=== PATIENT | male | born 1940 | race Caucasian/White ===

== ENCOUNTER 2018-05-02 16:06 | Inpatient (IN) | payer OTHER, MEDICARE ==
[2018-05-02 16:28] LABS: PLATELET COUNT 221 10^3/uL (150-400)
[2018-05-02] MEDS ORDERED: D5W LR 1,000 ML IV ONE (16:38)
[2018-05-02 16:44] LABS: INR 1.11 (0.83-1.16); PROTIME(PATIENT) 14.5 SEC (12.0-15.0)
--- NOTE | 2018-05-02 17:24 | EDPHY ---
H & P Time Seen by Provider: 05/02/18 16:10 HPI/ROS: HPI Altered mental status, suicide attempt, hypoglycemia. 77-year-old male by ambulance from his residence. This patient has a history of psychiatric illness. He has a history of multiple prior suicide attempts. He is an insulin-dependent diabetic. He has home health care coming to his house every day from 1:00 p.m. Until 7:00 p.m.. When they arrived today they were unable to into the residence. The doors were locked in the was no response from the patient. They then called police and police broke into the apartment. The patient was found down on the ground altered and confused. The initial blood sugar per EMS was too low to read. An IV was established by EMS. The patient was subsequently given 2 amps for total of 500 cc of D10 at his residence and on the way to the hospital. The patient now admits to me that he was trying to kill himself by insulin overdose. He also states that he thinks he took other medications in this suicide attempt but is unable to tell me what they are. He was admitted to our hospital and then to a psychiatric hoff back in February of 2018. This was after he overdosed on insulin and cut his wrist and his neck. 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 Since this time he has had difficulty communicating. Further history is difficult to obtain from this patient. ROS: Constitutional: No fever, no chills. No weakness. Eyes: No discharge. No changes in vision. ENT: No sore throat. No nasal congestion or rhinorrhea. Respiratory: No cough. No shortness of breath. Cardiac: No chest pain, no palpitations. Gastrointestinal: No abdominal pain, no vomiting, no diarrhea. Genitourinary: No hematuria. No dysuria or increased frequency with urination. Musculoskeletal: No back pain. No neck pain. No myalgias or arthralgias. Skin: No rashes. Neurological: No headache. No focal weakness or altered sensation. The patient answers no to all review of systems. Past medical history: As above. Social history: He lives by himself in an apartment. He does have home health care coming out daily as noted above. He has a brother named Getachew Arcos and a sister named IRINA. His brother's phone number is [phone]. His sister's phone number is [phone]. Smoking and alcohol use unknown. Physical Exam: General Appearance: Alert, eyes are open, he intermittently mumbles. He admits to trying to kill himself by insulin overdose This patient appears general well-hydrated and well-nourished. Head: Normocephalic atraumatic. Eyes: Pupils equal and round, cloudy likely from cataracts, minimal reactivity bilaterally at 3 mm, no pallor or injection. No lid edema, erythema or injection. No photophobia. No nystagmus. ENT, Mouth: Mucous membranes are dry. The pharyngeal tissues are unremarkable. No edema or swelling. No asymmetry suggestive of abscess. No erythema or exudates. Respiratory: There are no retractions, lungs are clear to auscultation anteriorly with good air movement bilaterally. Cardiovascular: Regular rate and rhythm. No murmur. He has a midline sternotomy scar. Gastrointestinal: Abdomen is soft and nontender, no masses, bowel sounds normal. No focal tenderness at McBurney's point. No Jimenez sign. Neurological: Motor sensory function is grossly intact. Cranial nerves are normal. Skin: Warm and dry, no rashes. Musculoskeletal: Neck is supple and nontender. No pain on flexion of his neck. Extremities are symmetrical. All joints range without pain or impingement. Psychiatric: No agitation. No depression. Database: EKG: EKG time is 4:21 p.m.; EKG shows a narrow complex normal sinus rhythm with a ventricular rate of 66. The QT interval is prolonged. The OR, QRS intervals are within normal limits. There are no ST-T wave changes indicative of ischemic or injury pattern. No evidence of right heart strain. Interpreted by me. Imaging: CT brain without contrast: No acute pathology. Please see Dr. Lee Siu note for further details. I discussed this study with him. Procedures: Emergency department course: Vital signs reviewed. Blood pressure is 118/70. potline monitor shows a narrow complex sinus rhythm, regular rate of 56. Room air pulse oximetry 94%. IV was established by EMS. The patient had been given 500 cc total of D10. I will start him on a D5 LR drip at 125 cc/hour. EKG obtained. The patient was placed on a cardiac sonographer. I have discussed his situation with [facility]. They are aware of his history. He will be put on a mental health hold. Plan will be to treat his hypoglycemia and to have him medically cleared by the hospitalist service for behavioral health evaluation. KANG will begin looking for placement at the [facility] psychiatric unit. 6:00 p.m., the patient has remained stable throughout his emergency department course. KANG is currently writing an M1 hold. I spoke with the on-call hospitalist Dr. Slade. Case discussed in detail with him. He accepts this patient for admission to the ICU. 6:10 p.m., M1 hold placed, repeat blood sugar is 30. Patient given 1 amp of D50. He will be started on D10 LR with potassium at 200 cc/hour while under my care in the emergency department only. Blood sugar will be checked every 0.5 hr while in the emergency department. Repeat blood sugars have been 97 in 106. The patient was transferred in stable condition to the ICU under the care of Dr. Slade. Differential Diagnosis: The differential diagnosis on this patient includes but is not limited to hypoglycemia secondary to insulin overdose, likely chronic enoxaparin injury, suicidal ideation and attempt. This represents a partial list of diagnoses considered. These considerations are based on history, physical exam, past history, reassessment and diagnostic testing. Smoking Status: Unknown if ever smoked Constitutional: Initial Vital Signs Temperature (C) 36.8 C 05/02/18 18:18 Heart Rate 53 L 05/02/18 18:18 Respiratory Rate 18 05/02/18 18:18 Blood Pressure 118/70 05/02/18 18:18 O2 Sat (%) 97 05/02/18 18:18 Allergies/Adverse Reactions: Unable to Assess Allergy (Unverified 05/02/18 16:14) Home Medications: Medication Instructions Recorded Atorvastatin Calcium [Lipitor 40 40 mg PO DAILY 05/02/18 mg (*)] Insulin Glargine,Hum.rec.anlog 100 unit SQ 05/02/18 [Lantus Solostar] Insulin Lispro [HumaLOG LISPRO] unit SC 05/02/18 Metoprolol Tartrate [Lopressor 25 12.5 mg PO BID 05/02/18 mg (*)] Metreleptin [Myalept] 5 mg SQ 05/02/18 Mirtazapine [Remeron] 15 mg PO HS 05/02/18 Sertraline HCl [Zoloft 100mg (*)] 100 mg PO DAILY 05/02/18 Medical Decision Making - Diagnostics Imaging Results: Imaging Impressions Head CT 05/02/18 16:25 Impression: White matter disease, likely related to microvascular ischemic change. If the patient does not improve, or if there is concern for intracranial infection, then consider MRI without and with contrast. Results called to Dr. Harden at 16:42 PM. General information for patients regarding this examination can be found at [email or web address]. If you have questions or comments about this report, please contact me at [phone] (hospital) or [phone] (cell). Critical Care Time: I spent a total of 52 minutes of critical care time in obtaining history, performing a physical exam, bedside monitoring of interventions, collecting and interpreting tests and discussion with consultants but not including time spent performing procedures. - Data Points Laboratory Results: Laboratory Results 05/02/18 16:15 05/02/18 16:15 05/02/18 05/02/18 05/02/18 16:20 16:15 16:15 WBC RBC Hgb POC Hgb 13.9 gm/dL gm/dL (13.7-17.5) Hct POC Hct 41 % % (40-51) MCV MCH MCHC RDW Plt Count MPV Neut % (Auto) Lymph % (Auto) [place] % (Auto) Eos % (Auto) Baso % (Auto) Nucleat RBC Rel Count Absolute Neuts (auto) Absolute Lymphs (auto) Absolute Monos (auto) Absolute Eos (auto) Absolute Basos (auto) Absolute Nucleated RBC Immature Gran % Immature Gran # RBC/WBC/PLT Morphology Platelet Estimate PT 14.5 SEC SEC (12.0-15.0) INR 1.11 (0.83-1.16) APTT 25.8 SEC SEC (23.0-38.0) POC Sodium 141 mEq/L mEq/L (135-145) Sodium POC Potassium 3.2 mEq/L L mEq/L (3.3-5.0) Potassium POC Chloride 102 mEq/L mEq/L (97-110) Chloride Carbon Dioxide Anion Gap POC BUN 24 mg/dL H mg/dL (7-23) BUN Creatinine POC Creatinine 0.8 mg/dL mg/dL (0.7-1.3) Estimated GFR Glucose POC Glucose 174 mg/dL H mg/dL (70-100) Calcium Salicylates < 1.0 mg/dL L mg/dL (2.0-20.0) Acetaminophen < 10 mcg/mL L mcg/mL (10-30) Ethyl Alcohol < 10 mg/dL mg/dL (0-10) 05/02/18 05/02/18 05/02/18 16:15 16:15 16:15 WBC 12.05 10^3/uL H 10^3/uL (3.80-9.50) RBC 4.43 10^6/uL 10^6/uL (4.40-6.38) Hgb 11.8 g/dL L g/dL (13.7-17.5) POC Hgb Hct 38.3 % L % (40.0-51.0) POC Hct MCV 86.5 fL fL (81.5-99.8) MCH 26.6 pg L pg (27.9-34.1) MCHC 30.8 g/dL L g/dL (32.4-36.7) RDW 16.0 % H % (11.5-15.2) Plt Count 221 10^3/uL 10^3/uL (150-400) MPV 12.1 fL H fL (8.7-11.7) Neut % (Auto) 94.6 % H % (39.3-74.2) Lymph % (Auto) 2.7 % L % (15.0-45.0) [place] % (Auto) 2.4 % L % (4.5-13.0) Eos % (Auto) 0.0 % L % (0.6-7.6) Baso % (Auto) 0.1 % L % (0.3-1.7) Nucleat RBC Rel Count 0.0 % % (0.0-0.2) Absolute Neuts (auto) 11.40 10^3/uL H 10^3/uL (1.70-6.50) Absolute Lymphs (auto) 0.33 10^3/uL L 10^3/uL (1.00-3.00) Absolute Monos (auto) 0.29 10^3/uL L 10^3/uL (0.30-0.80) Absolute Eos (auto) 0.00 10^3/uL L 10^3/uL (0.03-0.40) Absolute Basos (auto) 0.01 10^3/uL L 10^3/uL (0.02-0.10) Absolute Nucleated RBC 0.00 10^3/uL 10^3/uL (0-0.01) Immature Gran % 0.2 % % (0.0-1.1) Immature Gran # 0.02 10^3/uL 10^3/uL (0.00-0.10) RBC/WBC/PLT Morphology TNP Platelet Estimate TNP PT INR APTT POC Sodium Sodium 136 mEq/L mEq/L (135-145) POC Potassium Potassium 3.3 mEq/L L mEq/L (3.5-5.2) POC Chloride Chloride 104 mEq/L mEq/L (97-110) Carbon Dioxide 19 mEq/l L mEq/l (22-31) Anion Gap 13 mEq/L mEq/L (6-14) POC BUN BUN 25 mg/dL H mg/dL (7-23) Creatinine 0.8 mg/dL mg/dL (0.7-1.3) POC Creatinine Estimated GFR > 60 Glucose 173 mg/dL H mg/dL (70-100) POC Glucose 147 mg/dL H mg/dL (70-100) Calcium 9.2 mg/dL mg/dL (8.5-10.4) Salicylates Acetaminophen Ethyl Alcohol Medications Given: Dextrose/Lactated Ringer's (D5w Lr) 1,000 mls @ 125 mls/hr IV CONT ONE Stop: 05/03/18 00:37 Last Admin: 05/02/18 16:57 Dose: 1,000 mls Discontinued Medications Potassium Chloride (Potassium Cl 10 Meq (Premix)) 100 mls @ 100 mls/hr IV EDNOW ONE Stop: 05/02/18 19:24 Last Admin: 05/02/18 18:26 Dose: 100 mls Point of Care Test Results: Chemistry 05/02/18 05/02/18 16:20 16:15 POC Sodium 141 mEq/L mEq/L (135-145) POC Potassium 3.2 mEq/L L mEq/L (3.3-5.0) POC Chloride 102 mEq/L mEq/L (97-110) POC BUN 24 mg/dL H mg/dL (7-23) POC Creatinine 0.8 mg/dL mg/dL (0.7-1.3) POC Glucose 174 mg/dL H mg/dL 147 mg/dL H mg/dL (70-100) (70-100) ISTAT H&H 05/02/18 16:20 POC Hgb 13.9 gm/dL gm/dL (13.7-17.5) POC Hct 41 % % (40-51) Departure - Departure Disposition: [facility] Inpatient Acute Clinical Impression: Insulin overdose, Hypoglycemia, Suicidal ideation, Hypokalemia Condition: Fair
[2018-05-02] MEDS ORDERED: D50W 25 GM/50 ML SYR IVP ONE ×3 (18:12→21:30)
[2018-05-02] MEDS ORDERED: D10W 1,000 ML IV ONE (18:15)
[2018-05-02] MEDS ORDERED: POTASSIUM Cl (KCl) 10 MEQ/100 ML BAG IV ONE (18:18)
[2018-05-02] MEDS ORDERED: POTASSIUM Cl (KCl) 100 ML IV ONE (18:25)
[2018-05-02] MEDS ORDERED: ONDANSETRON 4 MG/2 ML VIAL IVP PRN (18:55)
[2018-05-02] MEDS ORDERED: ACETAMINOPHEN 325 MG TAB PO PRN (18:55)
[2018-05-02] MEDS ORDERED: ONDANSETRON DISINTEGRATING 4 MG TAB PO PRN (18:55)
[2018-05-02] MEDS ORDERED: DEXTROSE IVP SCH (19:00)
[2018-05-02] MEDS ORDERED: POTASSIUM CL IVP SCH (19:00)
[2018-05-02] MEDS ORDERED: D5W LR IVP SCH (19:00)
--- NOTE | 2018-05-02 20:22 | CPEKG ---
Test Reason : OPEN Blood Pressure : / mmHG Vent. Rate : 066 BPM Atrial Rate : 065 BPM P-R Int : 192 ms QRS Dur : 095 ms QT Int : 489 ms P-R-T Axes : 044 -05 090 degrees QTc Int : 513 ms Sinus rhythm Prolonged QT interval Confirmed by Cristina Harden ([id number]) on 05/02/2018 8:21:52 PM Referred By: Cristina Harden Confirmed By:Cristina Harden
--- NOTE | 2018-05-02 20:58 | ASMTLCPROG ---
Notes Note: Notes: PT is not medically clear and being moved to ICU. Pt's [facility] eval was mostly completed with collateral and will need to be further completed upon med clearence. M1 Hold written by [facility] per Dr. Cristina Lozano and signed by Dr. Lozano.Pt rights in chart. Date Signed: 05/02/2018 06:31 PM Electronically Signed By:Lee Augustin
--- NOTE | 2018-05-02 22:16 | GHP ---
DATE OF ADMISSION: 05/02/2018 CHIEF COMPLAINT: Insulin overdose. HISTORY OF PRESENT ILLNESS: This is a 77-year-old male who recently had a suicide attempt in be r of this year where he cut his wrists. He was then sent to inpatient psychiatry at that time. [facility] home health care has been coming to his house. The doors were locked and there was no respons e, and then police broke into the apartment, and the patient was found down and confused. Blood suga r was too low to read, per EMS. Patient was given D50 and with improvement in mental status. He cur rently is on a D10 drip. Patient does admit to taking insulin as an intentional suicide act. However, it seems like he has prince ffered some anoxic brain injury from his last suicide attempt, and conversation has been difficult. I am not able to really get much more of a history. REVIEW OF SYSTEMS: Limited review of systems is obtained due to patient's non-conversive state. PAST MEDICAL HISTORY: 1. Coronary artery disease, status post CABG in 2018. 2. Depression. 3. Hypertension. 4. Type 2 diabetes, insulin dependent. MEDICATIONS: Reviewed. SOCIAL HISTORY: No smoking. FAMILY HISTORY: Unobtained. Does not appear to have any family history of psychiatric illness. PHYSICAL EXAM: VITAL SIGNS: Afebrile. Blood pressure is 119/78. Heart rate is 53, oxygen saturati on 97% on room air. GENERAL: Patient is well developed, in no apparent distress. HEENT: Nonicteri c sclerae. Extraocular movements intact. Moist mucous membranes. NECK: Supple, with no thyromegal y. LUNGS: Good effort. Clear to auscultation bilaterally. CARDIOVASCULAR: Regular rate and rhyth m. No murmurs or gallops. ABDOMEN: Positive bowel sounds. Soft, nontender, nondistended. No hepa tosplenomegaly. EXTREMITIES: No clubbing, cyanosis, or edema. SKIN: Without rash, dry, intact. N EURO: Really difficult to converse with him. PSYCH: Flat affect. LABS: White count is 12, hemoglobin 11. Chemistries showed blood sugars in the 140s to 170s when he first came in, and then dropped again to 30s. U-tox is negative. CT scan of the head is negative. ASSESSMENT: This is a 77-year-old male presenting with a suicide attempt with an overdose of insulin . PLAN: 1. Insulin overdose: He has been on Lantus in the past. It is very conceivable he took Lantus as w ell as lispro. We will monitor his blood sugars quite closely. He is on a D10 drip now. We will gi ve p.r.n. D50. 2. Suicide attempt: Patient will be on mental health hold. 3. History of coronary artery disease: It seems that his depression might have started after his by pass surgery. . /[id number]/MODL
[2018-05-02] MEDS ORDERED: D50W 25 GM/50 ML SYR IVP PRN (22:50)
[2018-05-03] MEDS ORDERED: D5W NS W/ 20 KCl/L 1,000 ML IV SCH (02:30)
[2018-05-03 05:15] LABS: PLATELET COUNT 162 10^3/uL (150-400)
[2018-05-03] MEDS: ENOXAPARIN 40 MG/0.4 ML SYR SC SCH (08:52)
--- NOTE | 2018-05-03 10:10 | PDMN ---
Medical Necessity Medical necessity: [facility] [place] [facility] General Admission: 77 yo w/ attempted suicide by insulin OD. M1 hold as pt risk of harm to self. Admit to ICU for tx/ management of OD, BEH services.
[2018-05-03] MEDS ORDERED: D50W 25 GM/50 ML SYR IVP PRN (10:41)
[2018-05-03] MEDS ORDERED: MELATONIN 3 MG TAB PO PRN (10:48)
[2018-05-03] MEDS: INSULIN LISPRO 100 UNIT/ML SC SCH ×3 (11:00→18:15)
--- NOTE | 2018-05-03 11:37 | HOSPPROG ---
Hospitalist Progress Note Assessment/Plan: Intentional Insulin Overdose - Has been on Lantus in the past, admits to intentionally taking overdose - S/p D5 and started on D10 gtt on admission - Wean off dextrose infusion this morning, BG in 200's - Placed on M1 Hold - If BG remains WNL without signs of dropping, will medically clear this afternoon Hypoglycemia - 2/2 to above - S/p dextrose gtt, weaned off this morning - BG 200's this AM, will start SSI to cover - Continue to monitor blood glucose T2DM - Has been on Lantus 32 units qd, Lispro 10 units TID - Intentional insulin overdose as above - Will order SSI for now, will restart long acting insulin at half of prescribed dose 16 units, in setting of hypoglycemia and overdose, uptitrate as needed Depression - Overdose and M1 Hold as above - Continue home medications this morning FEN: Diabetic Diet Code: FULL Dispo: If BG remains WNL throughout today will medically clear for discharge per [facility] Subjective: Patient reports no complaints this AM Objective: Vital Signs Temp Pulse Resp BP Pulse Ox 37.1 C 69 16 131/63 H 98 05/03/18 08:00 05/03/18 10:00 05/03/18 10:00 05/03/18 10:00 05/03/18 10:00 Laboratory Results 05/03/18 05:00 05/03/18 05:00 05/02/18 05/03/18 05/04/18 05:59 05:59 05:59 Intake Total 1612 Output Total 675 125 Balance 937 -125 PT 14.5 SEC (12.0-15.0) 05/02/18 16:15 INR 1.11 (0.83-1.16) 05/02/18 16:15 - Physical Exam Constitutional: no apparent distress Eyes: PERRL Ears, Nose, Mouth, Throat: moist mucous membranes Cardiovascular: regular rate and rhythym Respiratory: no respiratory distress Gastrointestinal: No distension Genitourinary: No bassett in urethra Skin: normal color Neurologic: AAOx3 Psychiatric: depressed ICD10 Worksheet Patient Problems: Problems Problem Status Onset Hypoglycemia Acute Hypokalemia Acute Insulin overdose Acute Suicidal ideation Acute
--- NOTE | 2018-05-03 16:25 | ASMTTLCEVL ---
TLC Evaluation - Basic Information Evaluation Start Date and 05/02/2018 06:00 PM Time Hospital Status Answers: M1 Hold 72-hr M1 Hold Start Date 05/02/2018 06:15 PM and Time Patient statement Notes: "This was a suicide attempt" Narrative Notes: PT is a 77 year old caucasion male, never , no children, living in an apt in [place]. PT arrived by ambulance from his residence after pt's caregiver called for a welfare check. Per ED report "PT has hx of major depression recurrent and severe suicide attempts. Pt is an insulin-dependent diabetic. He has home health care coming to his house every day from 1:00 p.m. Until 7:00 p.m. When they arrived today they were unable to into the residence. The doors were locked in the was no response from the patient. They then called police and police broke into the apartment. The patient was found down on the ground altered and confused. The initial blood sugar per EMS was too low to read. An IV was established by EMS. The patient was subsequently given 2 amps for total of 500 cc of D10 at his residence and on the way to the hospital. The patient now admits to me that he was trying to kill himself by insulin overdose. He also states that he thinks he took other medications in this suicide attempt but is unable to tell me what they are. Pt admited to ed physician that was admitted to our hospital and then to a psychiatric hoff back in February of 2018. This was after he overdosed on insulin and cut his wrist and his neck. 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 Since this time he has had difficulty communicating. Further history is difficult to obtain from this patient." Diagnosis History Notes: Per previous discharge summary from unit, pt has major depression severe recurrent Prior suicide attempts Notes: Per previous eval regarding suicide attempt in February 2018 in which pt was hopsitalized : "Per ED report police knocked on his door and had to break in where he was found in the kitchen with blood all over himself. He had a deep laceration to his left wrist and also a laceration to his left neck with several other small abrasions. Pt had reported he took 100 units of IM insulin about an hour before his arrival to the ED. " Prior hospitalizations Notes: [facility] 3N 02/2018 after previous suicide attempt. Treatment Responses Notes: Per [facility] In Pt Psyc Discharge Summary - [facility] INPT Discharge Summary Patient Name: ABHAY CASTRO Unit Number: [id number] Attending/ER Physician: Pantera Hair MD Adm Date/Source: 02/09/18 Discharge Date: 02/17/18 Primary Carrier: MEDICARE PSYCH INPATIENT REASON FOR ADMISSION: From the emergency department provider report dated 02/07/2018, patient reported to his brother he was suicidal. The police knocked on patient's door and found him in the kitchen with blood all over the kitchen floor. The patient had a deep laceration to his left wrist and also laceration to his left neck with several other small abrasions. Patient also reported he took 100 units of IM insulin about 1 hour prior to presenting to the emergency department. Patient was admitted involuntarily on an M1 hold due to being a danger to himself and was hospitalized for safety, crisis stabilization, and medication evaluation. ADMISSION DIAGNOSES: 1. Major depressive disorder, recurrent episode, severe, with anxious distress. 2. Depressive disorder due to another medical condition with depressive features. 3. Uncontrolled diabetes mellitus. HOSPITAL COURSE: The most prominent symptoms and behaviors while the patient was here were reports of moderate depression and moderate anxiety. Treatment modalities utilized were milieu and group therapy. Sertraline 50 mg p.o. daily was started to target anxiety and depression symptoms, and was tolerated with no report of side effects and with fair response. Remeron 7.5 mg p.o. q.h.s. was started and was titrated to 15 mg p.o. at bedtime, was tolerated with no report of side effects and with good response. Atorvastatin calcium 40 mg p.o. q.h.s. with continued was tolerated with no report of side effects and with good response. Lopressor 12.5 mg p.o. b.i.d. was continued with no report of side effects and with good response. Insulin lispro 0 to 10 units SC ACHS. Insulin Glargine was adjusted and at discharge was at 36 units SC h.s. Insulin lispro was adjusted throughout hospitalization, at discharge was at 12 units SC t.i.d. with meal. These medications for the patient's diabetes mellitus were tolerated with no report of side effects and with fair response. Patient's blood sugar was more regulated at time of discharge and improved considerably throughout the patient's stay. Patient requests to remain at these current doses of Insulin Lispro JANEL and PRN and Insulin Glargine after discharge, and states he plans to follow-up at [facility] today to review with PCP. Patient has improved considerably with no signs of psychiatric symptoms and no psychiatric symptoms expressed at time of discharge. Patient reports he has improved since admission, states to be in stable condition, feels safe to discharge, and he contracts for safety. The patient's response to treatment was good. There were no adverse or unexpected results of treatment. Patient was safe throughout his stay, active in treatment, attended and engaged in groups, and was appropriate with staff and other patients. Patient met with the treatment team prior to discharge to assess readiness to discharge and review discharge plan. The treatment team consensus is the patient is in stable condition, has a safe discharge plan, and is ready to discharge today. CONDITION AT DISCHARGE: Patient is in stable condition and is no longer a danger to self or others, and is not gravely disabled due to mental illness. Patient is no longer in need of inpatient level of care, and can be safely and effectively treated within the community. The patients level of risk at time of discharge is low. MSE: The patient is casually dressed and with good hygiene, and looks stated age. Patient is sitting, posture is upright, and position is relaxed. Patient appears awake, alert, and responds appropriately and reasonably during interview. Patient is engaged, relates well to interviewer, and emotional facial expression is appropriate to situation and changes appropriately with topic. Patient is cooperative, makes comfortable eye contact, and movements are voluntary, deliberate, coordinated, and smooth and even with no inappropriate movements. Patient makes laryngeal sounds effortlessly and shares conversation appropriately; pace of conversation is appropriate, and stream of talking is fluent; articulation is clear and understandable; word choice is effortless and appropriate for education level; completes sentences, occasionally pausing to think; rate and volume are appropriate for interview and setting. Patient reports mood as euthymic. Patients affect is stable with full variable range, congruent with mood, and appropriate to speech and circumstances. Patient has linear and logical thinking, with no loose associations, tangential thought, thought blocking, concrete thinking, or any other signs of formal thought disorder. Patient denies suicidal and homicidal ideation, and denies hallucinations and delusions. Patient appears to be a reliable historian with sound judgement and good insight into current condition. Patient has no apparent dysfunction in recent or remote memory noted, and no evidence of gross cognitive dysfunction noted at any point during the interview. DISCHARGE DIAGNOSES: 1. Major depressive disorder, recurrent episode, severe, with anxious distress. 2. Depressive disorder due to another medical condition with depressive features. 3. Uncontrolled diabetes mellitus. CURRENT MEDICATIONS: After reviewing options risks and benefits with the patient, patient agrees to continue: 1. Insulin lispro 0 to 10 units SC ACHS. 2. Insulin lispro 12 units SC t.i.d. with meal. 3. Insulin glargine 36 units SC h.s. 4. Atorvastatin calcium 40 mg p.o. q.h.s. 5. Sertraline 50 mg p.o. daily. 6. Mirtazapine 15 mg p.o. q.h.s. 7. Lopressor 12.5 mg p.o. b.i.d. 8. Melatonin 3 to 6 mg p.o. h.s. p.r.n. Patient requests prescriptions for these medications at time of discharge and prescriptions are written for 30 days. The prescriptions are reviewed with the patient at time of discharge to ensure accuracy and patient understanding. Patient has an appointment today with a primary care provider at [facility] at 1520, and patient plans to review prescriptions with the PCP and PCP to make any adjustments necessary based on the patient's history of diabetes mellitus and current blood sugar control. DISPOSITION: Patient left hospital independently and voluntarily with his brother and plans to attend outpatient PCP appointment at [facility] with his brother today at 1520, and then plans to stay at [facility] Respite transitional housing. FOLLOWUP: clinical trials data coordinator reports the appropriate outpatient follow-up services have been established and outpatient appointments have been scheduled. The patient received written instructions with times and dates of outpatient follow-up appointments. The following follow-up recommendations were provided to the patient at discharge: Continue psychotropic medications as prescribed and attend appointments as scheduled. Report any side effects to a psychiatric outpatient provider, a primary care provider, or other health animal care attendant. Address any questions or problems concerning the psychotropic medications with a psychiatric outpatient provider, a primary care provider, or other health animal care attendant. Contact [facility] or [facility], or go to the nearest emergency room, if you are ever a danger to yourself/others, or unable to care for yourself. As soon as possible, establish a routine medication management treatment with a psychiatric provider, establish routine therapy appointments, and follow-up with a primary care provider. LEGAL COURSE: Patient was hospitalized involuntarily on an M1 hold for inpatient psychiatric hospitalization the patient discharged today independently and voluntarily with his brother. ATTITUDE AT TIME OF DISCHARGE: The patients attitude was positive at time of discharge, and patient reports looking forward to discharging today. The patient reports he feels safe to discharge, is no longer a danger to himself or others, is in stable condition, and contracts for safety. Patient states he will continue medications as prescribed, and establish medication management treatment with an outpatient provider after discharge. Patient reports he understands the information that has been provided to him, and he understands, accepts, and agrees to psychotropic medications. Patient describes internal protective factors as the coping skills he has learned while hospitalized here, and he plans to continue to practice these coping skills after discharge. Patient reports external protective factors as family. FAMILY MEETING: This AUTO LOCATOR met with patient and patient's brother at patient's request to review discharge plan, medications, and readiness to discharge. Patient's brother reports patient has a safe discharge plan and is ready to discharge today. LABORATORY/STUDIES: There were no pending labs or studies at time. ADVANCED DIRECTIVES: There were no advance directives on file and patient was full code during this hospitalization. The following psychotropic medication treatment informed consent and recommendations were provided to the patient at time of discharge. Patient reports he understands, accepts, and agrees to the information that has been provided. PSYCHOTROPIC MEDICATION TREATMENT INFORMED CONSENT and RECOMMENDATIONS: Review nature of condition, diagnosis, and prognosis. Review nature and purpose of psychotropic medication treatment. Review type of psychotropic medications being prescribed. Review risk and benefits of psychotropic medication treatment. Review probable length of time will need to take medications. Review risk and benefits of not undergoing psychotropic medication treatment. Review alternative treatments to psychotropic medications. Review psychotropic medications contraindications, side effects, and importance of reporting any side effects to a psychiatric provider, primary care provider, or other health animal care attendant. Review importance of asking a psychiatric provider or primary care provider any questions or problems concerning the psychotropic medications. Review safety plan and the importance to contact [facility] or [facility], or go to the nearest emergency room, if ever a danger to yourself/others, or unable to care for yourself. Recommend upon discharge to establish routine medication management treatment with a psychiatric provider, establish routine therapy appointments, and follow-up with a primary care provider. Verify patient understands, accepts, and agrees to the information that has been provided. SUICIDE ASSESSMENT FIVE-STEP EVALUATION AND TRIAGE (1) RISK FACTORS: (a) Suicidal behavior: no history of prior suicide attempts (b) Current/past psychiatric disorders: Major Depressive Disorder (c) [place] symptoms: none expressed or exhibited at time of discharge (d) Family history: none (e) Precipitants/Stressors/Interpersonal: none (f) Change in treatment: discharge from psychiatric hospital (g) Access to firearms: none (2) PROTECTIVE FACTORS: (a) Internal: coping skills learned while hospitalized (b) External: family, friends, and future (3) SUICIDAL INQUIRY: (a) Ideation: none (b) Plan: none (c) Behaviors: none; patient was safe throughout stay with no suicidal or parasuicidal behaviors (d) Intent: none (4) RISK LEVEL: Low: modifiable risk factors, strong protective factors; no suicidal or self-injurious ideation. Intervention: treatment plan to reduce symptoms including medications and therapy, provided emergency/crisis numbers, established follow-up plan, and supportive family. Signed by Robbi Bonner NP History of violence Notes: None repoted Medications (name, dosage, route, freq uency) Notes: Pt is unable to report med list - Per previous in-pt stay: CURRENT MEDICATIONS: After reviewing options risks and benefits with the patient, patient agrees to continue: 1. Insulin lispro 0 to 10 units SC ACHS. 2. Insulin lispro 12 units SC t.i.d. with meal. 3. Insulin glargine 36 units SC h.s. 4. Atorvastatin calcium 40 mg p.o. q.h.s. 5. Sertraline 50 mg p.o. daily. 6. Mirtazapine 15 mg p.o. q.h.s. 7. Lopressor 12.5 mg p.o. b.i.d. 8. Melatonin 3 to 6 mg p.o. h.s. p.r.n. 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 Pt was exhibiting hypotension upon arrival to the ED. Pt has a reported hx of hyperlipidemia, hypertension, CAD, CABG, hx of heart murmur, insomnia, and long standing hx of depression. EKG: EKG time is 4:21 p.m.; EKG shows a narrow complex normal sinus rhythm with a ventricular rate of 66. The QT interval is prolonged. The p.r., QT intervals are within normal limits. There are no ST-T wave changes indicative of ischemic or injury pattern. No evidence of right heart strain. Interpreted by me. Imaging: CT brain without contrast: No acute pathology. Substance use history (frequency, intensity, his tory, duration) Notes: Per previous eval the Pt denies any substance abuse. Family composition Notes: Per previous eval the Pt single, never . He has one brother who lives locally and a sister. He has a brother named Getachew Castro and a sister named JANETH. His brother's phone number is [phone]. His sister's phone number is [phone]. Need for family Answers: Yes participation in patient's care Family psychiatric/substance abuse history Notes: No family hx of substance abuse or mental health problems were identified Developmental history Notes: Per previous eval the Pt denied any hx of ADD or ADHD. He likely had a concussion during his youth playing football. Pt described his childhood as good born and raised in [place], [place] Abuse concerns Answers: None Marital status/children Notes: Pt single, never . Pt has no children. Living situation Notes: Pt lives alone in [place]. He moved to [place] about 4 years ago. Sexual history/orientation Notes: Pt identifies himself as heterosexual. He is not in a relationship Peer support/family strengths Notes: Pt feels he has many acquaintances in the area but views his brother and sister in law as his main support. 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 He has not been working for about 4 years. Pt previously served in the Notes: Pt served in [place] Legal Notes: Pt reported many years ago he was arrested for drug possession Bahai/Spiritual Notes: Pt denied any hindu or spiritual beliefs that would interfere with his treatment Leisure Notes: Pt stated he enjoys exercising, walking, hiking and swimming Collateral Notes: Collateral was obtained from pt.'s medical record and EMS. Patient's strengths Answers: Honest (Please select at least TWO strengths): Insightful Responsible/Dependable Supportive Family Willingness TLC Evaluation - Mental Status Exam Appearance: Answers: Appropriate Clean Well Groomed Eye Contact: Answers: Intermittent Mood: Answers: Depressed Labile Sad Affect: Answers: Appropriate Apprehensive Calm Congruent w/ Mood Flat Sad Behavior: Answers: Appropriate Cooperative Impulsive Passive Speech: Answers: Relevant Logical Clear Coherent Soft Thought Process: Answers: Organized Oriented Alert Intact Insight: Answers: Fair Judgement: Answers: Fair Manic Signs/Symptoms Answers: Impulsivity Mood Swings Depression Answers: Difficulty Concentrating Signs/Symptoms: Diminished Interest Diminished Pleasure Flat Affect Hopelessness Psychomotor Retardation Sad Mood Withdrawn Worthlessness Hallucinations: Answers: None Pt reported to have Answers: Yes suicidal/self-injuring ideation/behavior? Pt reported to be making Answers: No suicidal/self-injuring threats? Pt reported to have Answers: No aggression/assault ideation/behavior? Pt exhibits inability to Answers: No care for self/grave disability? Ideation/behavior is Answers: Yes chronic? Patient has a specific Answers: Yes plan? Pt has access to means to Answers: Yes execute the plan? Ideation has Answers: No delusional/hallucinatory content? History of Answers: Yes suicidal/self-injuring ideation, behavior, or threats? History of Answers: No aggressive/assaultive ideation, behavior, or threats? History of serious Answers: No physical harm to self/others while in treatment setting? [facility] Evaluation - Suicide/Homicide Risk Suicide Risk Factors: Answers: < 20 or > 40 Years of Age Flat Affect Hopelessness Impulsivity Inadequate Social Support Lack of Social Support Lack/Loss of Employment Major Depression Organized Lethal Plan Prior Suicide Attempt(s) Single Homicide/violence risk Answers: None factors: Current Suicidal Answers: Yes Ideation? Current Suicidal Ideation Answers: Yes in the Past 48 Hours? Current Suicidal Ideation Answers: Yes in the Past Month? Current Suicidal Answers: No Ideation, Worst Ever? Suicide Internal Answers: Absence of Psychosis Protective Factors: Suicide External Answers: Positive Therapeutic Protective Factors: Relationships Ranking of patient's Answers: Imminent suicidal risk: Ranking of patient's Answers: Low homicidal risk: TLC Evaluation - Wrap-up AXIS I Diagnosis (include DSM-V and ICD-10 codes), must also be entered in [employer], which is the source of truth. Notes: Major Depressive Disorder, recurrent, severe 296.33 (F33.2) PT did not want to complete BDI or BSS.; He initially denied SI to centrifugal separator but when asked to do the BDI and BSS he then said "it was a suicide attempt" Per ICU staff pt had also told Dr. Mejia it was a suicide attempt." Evaluation End Date and 05/03/2018 04:25 PM Time (HH:MM): Date Signed: 05/03/2018 04:25 PM Electronically Signed By:Lee Augustin
--- NOTE | 2018-05-03 17:31 | ASMTLCPROG ---
Notes Note: Notes: PT reports [facility]'t [facility] the name of provider. Date Signed: 05/03/2018 05:31 PM Electronically Signed By:Lee Augustin
[2018-05-03] MEDS ORDERED: INSULIN GLARGINE 100 UNITS/ML UNIT SC SCH (21:00)
[2018-05-03] MEDS ORDERED: MIRTAZAPINE 15 MG TAB PO SCH (21:00)
[2018-05-03] MEDS: METOPROLOL TARTRATE 25 MG TAB PO SCH (21:23)
[2018-05-04] MEDS: INSULIN LISPRO 100 UNIT/ML SC SCH ×2 (07:33→11:31)
[2018-05-04] MEDS: METOPROLOL TARTRATE 25 MG TAB PO SCH (08:20)
[2018-05-04] MEDS: ENOXAPARIN 40 MG/0.4 ML SYR SC SCH (08:21)
[2018-05-04] MEDS ORDERED: ATORVASTATIN CALCIUM 40 MG TAB PO SCH (09:00)
[2018-05-04] MEDS ORDERED: SERTRALINE HCL 100 MG TAB PO SCH (09:00)
[2018-05-04 12:02] VITALS: BP 146/76
--- NOTE | 2018-05-04 14:20 | PDDCSUM ---
Discharge Summary Discharge Summary: Date of Admission: 05/02/2018 Date of Discharge: 05/04/2018 Consults: KANG Procedures: N/A Followup: Psychiatry, PCP Hospital Course Problem List: Intentional Insulin Overdose - Has been on Lantus in the past, admits to intentionally taking overdose - S/p D5 and started on D10 gtt on admission - Weaned off dextrose infusion, BG in 200's - Placed on M1 Hold Hypoglycemia - 2/2 to above - S/p dextrose gtt, weaned off - BG 200's this AM, restarted home long acting and short acting insulin - Continue to monitor blood glucose T2DM - Has been on Lantus 32 units qd, Lispro 10 units TID - Intentional insulin overdose as above Depression - Overdose and M1 Hold as above - Continue home medications Time spent on discharge was >35 minutes with >50% of time spent on patient education and counseling.
--- NOTE | 2018-05-04 21:53 | ASMTLACE ---
PAYAL Length of stay for Answers: 2 days current admission Acuity / Level of Answers: Yes Care: Did the patient have an inpatient admission? Comorbidities - select Answers: Coronary Artery Disease all that apply Diabetes (uncontrolled or controlled) Other Notes: HTN, suicide attempt # of Emergency department Answers: 1-2 visits in the last 6 months Social determinants Answers: Mental health diagnosis (anxiety, depression, pers onality disorders, etc.) Score: 13 Date Signed: 05/04/2018 09:53 PM Electronically Signed By:Jaclyn Goldman RN
--- NOTE | 2018-05-04 22:02 | ASMTDCNOTE ---
Case Management Discharge Discharge Order Complete? Answers: Yes Patient to Obtain Answers: Other Notes: via [facility] Medications Transportation Arranged Answers: Other Notes: [facility] transport arranged and to be paid for by the [facility]. Transport will Pick (Date 05/04/2018 01:00 PM & Time) EMTALA Complete Answers: Yes Notes: Faxed by ZOË Kanglapel stitcher Transport Answers: Yes Notes: Faxed by JALEEL Lujan Form Complete Faxed Final Orders Answers: Yes Notes: Faxed by ZOË Kang Agency/Facility Transfer Answers: Yes Notes: Faxed by ZOË Kang Report Printed & Faxed to Receiving Agency Family Notified Answers: No Discharge Comments Notes: Reviewed chart, spoke with Dr. Mejia and JALEEL Lujan. Per MD, pt to transfer to the [facility] inpatient psych unit today. Discharge coordinated and arranged by JALEEL Lujan with [facility]. Call received from the [facility], transportation arranged and to be paid for by the [facility]. [facility] to transport pt at 13:00. All records copied and sent via manual fax by ZOË Kang. Emtala form completed and faxed. Report called by ZOË Kang. Updates provided to pt. No IM/POPE forms signed. Pt to follow up as directed. CM available for any further issues or concerns. Discharge Plan: [facility] psych [facility] via [facility] transport Date Signed: 05/04/2018 10:01 PM Electronically Signed By:Jaclyn Goldman RN
--- NOTE | 2018-05-04 22:04 | ASDISCHSUM ---
Discharge Information Plan Status:Psych Placement/Petitioned Medically Cleared to Leave:05/03/2018 Discharge Date:05/04/2018 01:35 PM CM D/C Disposition:Other Psych, Not [place] ADT D/C Disposition:Other Psych, Not Ta Projected Discharge Date:05/05/2018 11:00 AM Transportation at D/C:Other Discharge Delay Reason: Follow-Up Date:05/05/2018 11:00 AM Discharge Slot:2 - 12:01 pm - 18:00 pm Final Diagnosis:Suicide attempt w/ insulin overdose, hypoglycemia, AMS, DM Placement Information Referral Type:Psychiatric Hospital or Unit Referral ID:[id number] Provider Name:[facility] Address 1:[address] Phone Number: Address 2: Fax Number: City:[place] Selection Factors:Insurance Driven State:[place] Patient Contact Information Contact Name:LEIDY Relationship: Address: Work Phone: City: [facility] Phone: [facility]/Zip Code: Email: Financial Information Financial Class:Medicare Primary Plan Desc:MEDICARE OUTPATIENT Primary Plan Number:[id number] Secondary Plan Desc:AARP/MDR SUPPLEMENT Secondary Plan Number:[id number] Assessment Information TLC Evaluation TLC Evaluation - Basic Information Evaluation Start Date and 05/02/2018 06:00 PM Time Hospital Status Answers: M1 Hold 72-hr M1 Hold Start Date 05/02/2018 06:15 PM and Time Patient statement Notes: "This was a suicide attempt" Narrative Notes: PT is a 77 year old caucasion male, never , no children, living in [place] apt [place]. PT arrived by ambulance from his residence after pt's caregiver called for a welfare check. Per ED report "PT has hx of major depression recurrent and severe suicide attempts. Pt is an insulin-dependent diabetic. He has home health care coming to his house every day from 1:00 p.m. Until 7:00 p.m. When they arrived today they were unable to into the residence. The doors were locked in the was no response from the patient. They then called police and police broke into the apartment. The patient was found down on the ground altered and confused. The initial blood sugar per EMS was too low to read. An IV was established by EMS. The patient was subsequently given 2 amps for total of 500 cc of D10 at his residence and on the way to the hospital. The patient now admits to me that he was trying to kill himself by insulin overdose. He also states that he thinks he took other medications in this suicide attempt but is unable to tell me what they are. Pt admited to ed physician that was admitted to our hospital and then to a psychiatric hoff back in February of 2018. This was after he overdosed on insulin and cut his wrist and his neck. 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 Since this time he has had difficulty communicating. Further history is difficult to obtain from this patient." Diagnosis History Notes: Per previous discharge summary from unit, pt has major depression severe recurrent Prior suicide attempts Notes: Per previous eval regarding suicide attempt in February 2018 in which pt was hopsitalized : "Per ED report police knocked on his door and had to break in where he was found in the kitchen with blood all over himself. He had a deep laceration to his left wrist and also a laceration to his left neck with several other small abrasions. Pt had reported he took 100 units of IM insulin about an hour before his arrival to the ED. " Prior hospitalizations Notes: [facility] 3N 02/2018 after previous suicide attempt. Treatment Responses Notes: Per [facility] In Pt Psyc Discharge Summary - [facility] IN[facility] Discharge Summary Patient Name: ABHAY CASTRO Unit Number: [id number] Attending/ER Physician: Pantera Hair MD Adm Date/Source: 02/09/18 Discharge Date: 02/17/18 Primary Carrier: MEDICARE PSYCH INPATIENT REASON FOR ADMISSION: From the emergency department provider report dated 02/07/2018, patient reported to his brother he was suicidal. The police knocked on patient's door and found him in the kitchen with blood all over the kitchen floor. The patient had a deep laceration to his left wrist and also laceration to his left neck with several other small abrasions. Patient also reported he took 100 units of IM insulin about 1 hour prior to presenting to the emergency department. Patient was admitted involuntarily on an M1 hold due to being a danger to himself and was hospitalized for safety, crisis stabilization, and medication evaluation. ADMISSION DIAGNOSES: 1. Major depressive disorder, recurrent episode, severe, with anxious distress. 2. Depressive disorder due to another medical condition with depressive features. 3. Uncontrolled diabetes mellitus. HOSPITAL COURSE: The most prominent symptoms and behaviors while the patient was here were reports of moderate depression and moderate anxiety. Treatment modalities utilized were milieu and group therapy. Sertraline 50 mg p.o. daily was started to target anxiety and depression symptoms, and was tolerated with no report of side effects and with fair response. Remeron 7.5 mg p.o. q.h.s. was started and was titrated to 15 mg p.o. at bedtime, was tolerated with no report of side effects and with good response. Atorvastatin calcium 40 mg p.o. q.h.s. with continued was tolerated with no report of side effects and with good response. Lopressor 12.5 mg p.o. b.i.d. was continued with no report of side effects and with good response. Insulin lispro 0 to 10 units SC ACHS. Insulin Glargine was adjusted and at discharge was at 36 units SC h.s. Insulin lispro was adjusted throughout hospitalization, at discharge was at 12 units SC t.i.d. with meal. These medications for the patient's diabetes mellitus were tolerated with no report of side effects and with fair response. Patient's blood sugar was more regulated at time of discharge and improved considerably throughout the patient's stay. Patient requests to remain at these current doses of Insulin Lispro JANEL and PRN and Insulin Glargine after discharge, and states he plans to follow-up at [facility] today to review with PCP. Patient has improved considerably with no signs of psychiatric symptoms and no psychiatric symptoms expressed at time of discharge. Patient reports he has improved since admission, states to be in stable condition, feels safe to discharge, and he contracts for safety. The patient's response to treatment was good. There were no adverse or unexpected results of treatment. Patient was safe throughout his stay, active in treatment, attended and engaged in groups, and was appropriate with staff and other patients. Patient met with the treatment team prior to discharge to assess readiness to discharge and review discharge plan. The treatment team consensus is the patient is in stable condition, has a safe discharge plan, and is ready to discharge today. CONDITION AT DISCHARGE: Patient is in stable condition and is no longer a danger to self or others, and is not gravely disabled due to mental illness. Patient is no longer in need of inpatient level of care, and can be safely and effectively treated within the community. The patients level of risk at time of discharge is low. MSE: The patient is casually dressed and with good hygiene, and looks stated age. Patient is sitting, posture is upright, and position is relaxed. Patient appears awake, alert, and responds appropriately and reasonably during interview. Patient is engaged, relates well to interviewer, and emotional facial expression is appropriate to situation and changes appropriately with topic. Patient is cooperative, makes comfortable eye contact, and movements are voluntary, deliberate, coordinated, and smooth and even with no inappropriate movements. Patient makes laryngeal sounds effortlessly and shares conversation appropriately; pace of conversation is appropriate, and stream of talking is fluent; articulation is clear and understandable; word choice is effortless and appropriate for education level; completes sentences, occasionally pausing to think; rate and volume are appropriate for interview and setting. Patient reports mood as euthymic. Patients affect is stable with full variable range, congruent with mood, and appropriate to speech and circumstances. Patient has linear and logical thinking, with no loose associations, tangential thought, thought blocking, concrete thinking, or any other signs of formal thought disorder. Patient denies suicidal and homicidal ideation, and denies hallucinations and delusions. Patient appears to be a reliable historian with sound judgement and good insight into current condition. Patient has no apparent dysfunction in recent or remote memory noted, and no evidence of gross cognitive dysfunction noted at any point during the interview. DISCHARGE DIAGNOSES: 1. Major depressive disorder, recurrent episode, severe, with anxious distress. 2. Depressive disorder due to another medical condition with depressive features. 3. Uncontrolled diabetes mellitus. CURRENT MEDICATIONS: After reviewing options risks and benefits with the patient, patient agrees to continue: 1. Insulin lispro 0 to 10 units SC ACHS. 2. Insulin lispro 12 units SC t.i.d. with meal. 3. Insulin glargine 36 units SC h.s. 4. Atorvastatin calcium 40 mg p.o. q.h.s. 5. Sertraline 50 mg p.o. daily. 6. Mirtazapine 15 mg p.o. q.h.s. 7. Lopressor 12.5 mg p.o. b.i.d. 8. Melatonin 3 to 6 mg p.o. h.s. p.r.n. Patient requests prescriptions for these medications at time of discharge and prescriptions are written for 30 days. The prescriptions are reviewed with the patient at time of discharge to ensure accuracy and patient understanding. Patient has an appointment today with a primary care provider at [facility] at 1520, and patient plans to review prescriptions with the PCP and PCP to make any adjustments necessary based on the patient's history of diabetes mellitus and current blood sugar control. DISPOSITION: Patient left hospital independently and voluntarily with his brother and plans to attend outpatient PCP appointment at [facility] with his brother today at 1520, and then plans [facility] FOLLOWUP: lifestyle coordinator reports the appropriate outpatient follow-up services have been established and outpatient appointments have been scheduled. The patient received written instructions with times and dates of outpatient follow-up appointments. The following follow-up recommendations were provided to the patient at discharge: Continue psychotropic medications as prescribed and attend appointments as scheduled. Report any side effects to a psychiatric outpatient provider, a primary care provider, or other health director career. Address any questions or problems concerning the psychotropic medications with a psychiatric outpatient provider, a primary care provider, or other health director career. Contact [facility] or [facility], or go to the nearest emergency room, if you are ever a danger to yourself/others, or unable to care for yourself. As soon as possible, establish a routine medication management treatment with a psychiatric provider, establish routine therapy appointments, and follow-up with a primary care provider. LEGAL COURSE: Patient was hospitalized involuntarily on an M1 hold for inpatient psychiatric hospitalization the patient discharged today independently and voluntarily with his brother. ATTITUDE AT TIME OF DISCHARGE: The patients attitude was positive at time of discharge, and patient reports looking forward to discharging today. The patient reports he feels safe to discharge, is no longer a danger to himself or others, is in stable condition, and contracts for safety. Patient states he will continue medications as prescribed, and establish medication management treatment with an outpatient provider after discharge. Patient reports he understands the information that has been provided to him, and he understands, accepts, and agrees to psychotropic medications. Patient describes internal protective factors as the coping skills he has learned while hospitalized here, and he plans to continue to practice these coping skills after discharge. Patient reports external protective factors as family. FAMILY MEETING: This DIRECTOR TRANSITION met with patient and patient's brother at patient's request to review discharge plan, medications, and readiness to discharge. Patient's brother reports patient has a safe discharge plan and is ready to discharge today. LABORATORY/STUDIES: There were no pending labs or studies at time. ADVANCED DIRECTIVES: There were no advance directives on file and patient was full code during this hospitalization. The following psychotropic medication treatment informed consent and recommendations were provided to the patient at time of discharge. Patient reports he understands, accepts, and agrees to the information that has been provided. PSYCHOTROPIC MEDICATION TREATMENT INFORMED CONSENT and RECOMMENDATIONS: Review nature of condition, diagnosis, and prognosis. Review nature and purpose of psychotropic medication treatment. Review type of psychotropic medications being prescribed. Review risk and benefits of psychotropic medication treatment. Review probable length of time will need to take medications. Review risk and benefits of not undergoing psychotropic medication treatment. Review alternative treatments to psychotropic medications. Review psychotropic medications contraindications, side effects, and importance of reporting any side effects to a psychiatric provider, primary care provider, or other health director career. Review importance of asking a psychiatric provider or primary care provider any questions or problems concerning the psychotropic medications. Review safety plan and the importance to contact [facility] or [facility], or go to the nearest emergency room, if ever a danger to yourself/others, or unable to care for yourself. Recommend upon discharge to establish routine medication management treatment with a psychiatric provider, establish routine therapy appointments, and follow-up with a primary care provider. Verify patient understands, accepts, and agrees to the information that has been provided. SUICIDE ASSESSMENT FIVE-STEP EVALUATION AND TRIAGE (1) RISK FACTORS: (a) Suicidal behavior: no history of prior suicide attempts (b) Current/past psychiatric disorders: Major Depressive Disorder (c) [place] symptoms: none expressed or exhibited at time of discharge (d) Family history: none (e) Precipitants/Stressors/Interpersonal: none (f) Change in treatment: discharge from psychiatric hospital (g) Access to firearms: none (2) PROTECTIVE FACTORS: (a) Internal: coping skills learned while hospitalized (b) External: family, friends, and future (3) SUICIDAL INQUIRY: (a) Ideation: none (b) Plan: none (c) Behaviors: none; patient was safe throughout stay with no suicidal or parasuicidal behaviors (d) Intent: none (4) RISK LEVEL: Low: modifiable risk factors, strong protective factors; no suicidal or self-injurious ideation. Intervention: treatment plan to reduce symptoms including medications and therapy, provided emergency/crisis numbers, established follow-up plan, and supportive family. Signed by Robbi Bonner NP History of violence Notes: None repoted Medications (name, dosage, route, freq uency) Notes: Pt is unable to report med list - Per previous in-pt stay: CURRENT MEDICATIONS: After reviewing options risks and benefits with the patient, patient agrees to continue: 1. Insulin lispro 0 to 10 units SC ACHS. 2. Insulin lispro 12 units SC t.i.d. with meal. 3. Insulin glargine 36 units SC h.s. 4. Atorvastatin calcium 40 mg p.o. q.h.s. 5. Sertraline 50 mg p.o. daily. 6. Mirtazapine 15 mg p.o. q.h.s. 7. Lopressor 12.5 mg p.o. b.i.d. 8. Melatonin 3 to 6 mg p.o. h.s. p.r.n. 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 Pt was exhibiting hypotension upon arrival to the ED. Pt has a reported hx of hyperlipidemia, hypertension, CAD, CABG, hx of heart murmur, insomnia, and long standing hx of depression. EKG: EKG time is 4:21 p.m.; EKG shows a narrow complex normal sinus rhythm with a ventricular rate of 66. The QT interval is prolonged. The p.r., QT intervals are within normal limits. There are no ST-T wave changes indicative of ischemic or injury pattern. No evidence of right heart strain. Interpreted by me. Imaging: CT brain without contrast: No acute pathology. Substance use history (frequency, intensity, his tory, duration) Notes: Per previous eval the Pt denies any substance abuse. Family composition Notes: Per previous eval the Pt single, never . He has one brother who lives locally and a sister. He has a brother named Getachew Castro and a sister named JANETH. His brother's phone number is [phone]. His sister's phone number is [phone]. Need for family Answers: Yes participation in patient's care Family psychiatric/substance abuse history Notes: No family hx of substance abuse or mental health problems were identified Developmental history Notes: Per previous eval the Pt denied any hx of ADD or ADHD. He likely had a concussion during his youth playing football. Pt described his childhood as good born and raised in [place], [place] Abuse concerns Answers: None Marital status/children Notes: Pt single, never . Pt has no children. Living situation Notes: Pt lives alone in [place]. He moved to [place] about 4 years ago. Sexual history/orientation Notes: Pt identifies himself as heterosexual. He is not in a relationship Peer support/family strengths Notes: Pt feels he has many acquaintances in the area but views his brother and sister in law as his main support. 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 He has not been working for about 4 years. Pt previously served in the Notes: Pt served in [employer] Legal Notes: Pt reported many years ago he was arrested for drug possession Judaism/Spiritual Notes: Pt denied any buddhism or spiritual beliefs that would interfere with his treatment Leisure Notes: Pt stated he enjoys exercising, walking, hiking and swimming Collateral Notes: Collateral was obtained from pt.'s medical record and EMS. Patient's strengths Answers: Honest (Please select at least TWO strengths): Insightful Responsible/Dependable Supportive Family Willingness TLC Evaluation - Mental Status Exam Appearance: Answers: Appropriate Clean Well Groomed Eye Contact: Answers: Intermittent Mood: Answers: Depressed Labile Sad Affect: Answers: Appropriate Apprehensive Calm Congruent w/ Mood Flat Sad Behavior: Answers: Appropriate Cooperative Impulsive Passive Speech: Answers: Relevant Logical Clear Coherent Soft Thought Process: Answers: Organized Oriented Alert Intact Insight: Answers: Fair Judgement: Answers: Fair Manic Signs/Symptoms Answers: Impulsivity Mood Swings Depression Answers: Difficulty Concentrating Signs/Symptoms: Diminished Interest Diminished Pleasure Flat Affect Hopelessness Psychomotor Retardation Sad Mood Withdrawn Worthlessness Hallucinations: Answers: None Pt reported to have Answers: Yes suicidal/self-injuring ideation/behavior? Pt reported to be making Answers: No suicidal/self-injuring threats? Pt reported to have Answers: No aggression/assault ideation/behavior? Pt exhibits inability to Answers: No care for self/grave disability? Ideation/behavior is Answers: Yes chronic? Patient has a specific Answers: Yes plan? Pt has access to means to Answers: Yes execute the plan? Ideation has Answers: No delusional/hallucinatory content? History of Answers: Yes suicidal/self-injuring ideation, behavior, or threats? History of Answers: No aggressive/assaultive ideation, behavior, or threats? History of serious Answers: No physical harm to self/others while in treatment setting? TLC Evaluation - Suicide/Homicide Risk Suicide Risk Factors: Answers: < 20 or > 40 Years of Age Flat Affect Hopelessness Impulsivity Inadequate Social Support Lack of Social Support Lack/Loss of Employment Major Depression Organized Lethal Plan Prior Suicide Attempt(s) Single Homicide/violence risk Answers: None factors: Current Suicidal Answers: Yes Ideation? Current Suicidal Ideation Answers: Yes in the Past 48 Hours? Current Suicidal Ideation Answers: Yes in the Past Month? Current Suicidal Answers: No Ideation, Worst Ever? Suicide Internal Answers: Absence of Psychosis Protective Factors: Suicide External Answers: Positive Therapeutic Protective Factors: Relationships Ranking of patient's Answers: Imminent suicidal risk: Ranking of patient's Answers: Low homicidal risk: TLC Evaluation - Wrap-up AXIS I Diagnosis (include DSM-V and ICD-10 codes), must also be entered in [employer], which is the source of truth. Notes: Major Depressive Disorder, recurrent, severe 296.33 (F33.2) PT did not want to complete BDI or BSS.; He initially denied SI to stock preparer but when asked to do the BDI and BSS he then said "it was a suicide attempt" Per ICU staff pt had also told Dr. Mejia it was a suicide attempt." Evaluation End Date and 05/03/2018 04:25 PM Time (HH:WINNIE): Date Signed: 05/03/2018 04:25 PM Electronically Signed By:Lee Augustin TLC Progress Note Notes Note: Notes: PT is not medically clear and being moved to ICU. Pt's TLC eval was mostly completed with collateral and will need to be further completed upon [facility]. M1 Hold written by [facility] per Dr. Cristina Lozano and signed by Dr. Lozano.Pt rights in chart. Date Signed: 05/02/2018 06:31 PM Electronically Signed By:Lee Augustin TLC Progress Note Notes Note: Notes: PT reports [facility]'t [facility] the name of provider. Date Signed: 05/03/2018 05:31 PM Electronically Signed By:Lee Augustin LACE PAYAL Length of stay for Answers: 2 days current admission Acuity / Level of Answers: Yes Care: Did the patient have an inpatient admission? Comorbidities - select Answers: Coronary Artery Disease all that apply Diabetes (uncontrolled or controlled) Other Notes: HTN, suicide attempt # of Emergency department Answers: 1-2 visits in the last 6 months Social determinants Answers: Mental health diagnosis (anxiety, depression, pers onality disorders, etc.) Score: 13 Date Signed: 05/04/2018 09:53 PM Electronically Signed By:Jaclyn Goldman RN Case Management Discharge Plan Note Case Management Discharge Discharge Order Complete? Answers: Yes Patient to Obtain Answers: Other Notes: via [facility] Medications Transportation Arranged Answers: Other Notes: [facility] transport arranged and to be paid for by the [facility]. 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 Mejia and JALEEL Lujan. Per MD, pt to transfer to the [facility] inpatient psych unit today. Discharge coordinated and arranged by JALEEL Lujan with [facility]. Call received from the [facility], transportation arranged and to be paid for by the [facility]. [facility] to transport pt at 13:00. All records copied and sent via manual fax by ZOË Kang. [place] form completed and faxed. Report called by ZOË Kang. Updates provided to pt. No IM/POPE forms signed. Pt to follow up as directed. CM available for any further issues or concerns. Discharge Plan: [place] [facility] via [facility] Date Signed: 05/04/2018 10:01 PM Electronically Signed By:Jaclyn Goldman RN Intervention Information Intervention Type:*Incorrect Registration Date of Service:05/03/2018 09:11 AM Patient Type:Observation Staff Member:Concepción Sims Hours: Discipline: Severity: Comment:
== END 2018-05-04 13:35 | DRG 918 ==
LOC: EDBD 16:06 → OBSVTOIN 19:01 → F2N 19:51
PROVIDERS: ADMIT Internal Medicine; ATTEND Internal Medicine
DX: T38.3X2A Poisoning by insulin and oral hypoglycemic [antidiabetic] drugs, intentional self-harm, initial encounter (principal); E11.649 Type 2 diabetes mellitus with hypoglycemia without coma; F32.9 Major depressive disorder, single episode, unspecified; I25.10 Atherosclerotic heart disease of native coronary artery without angina pectoris; I10 Essential (primary) hypertension; Z79.4 Long term (current) use of insulin; Z95.1 Presence of aortocoronary bypass graft
CPT/HCPCS: 80305; 82435-PO; 82565-PO; 82947-PO; 84132-PO; 84295-PO; 84520-PO; 85014-ER; 96365; G0480; J1650; J1815; J3480